=== PATIENT | male | born 1940 | race Caucasian/White ===

== ENCOUNTER → 2019-08-01 | Outpatient (CLI) | payer OTHER | LOC: NUC 07:46 | DX: R00.2 Palpitations (principal); E78.5 Hyperlipidemia, unspecified; I10 Essential (primary) hypertension; Z79.899 Other long term (current) drug therapy ==

== ENCOUNTER → 2020-06-06 | Outpatient (CLI) | payer OTHER | LOC: SJCVC 13:44 | PROVIDERS: ATTEND Internal Medicine Cardiovascular Disease | DX: I45.4 Nonspecific intraventricular block (principal); R94.31 Abnormal electrocardiogram [ECG] [EKG]; I25.10 Atherosclerotic heart disease of native coronary artery without angina pectoris; R00.2 Palpitations; I42.9 Cardiomyopathy, unspecified; I10 Essential (primary) hypertension; E78.5 Hyperlipidemia, unspecified; M10.9 Gout, unspecified; Z79.82 Long term (current) use of aspirin; Z79.899 Other long term (current) drug therapy ==